=== PATIENT | female | born 1990 | race Caucasian/White ===

== ENCOUNTER 2023-05-16 08:15 | Outpatient (REF) | payer MEDICAID, SELFPAY ==
[2023-05-19 17:18] LABS: TS Negative Control Passed; TS Panel A 0; TS Panel B 0; TS Positive Control Passed; TSpotTB Negative (Negative)
== END 2023-05-16 08:16 | disposition home or self-care (01) ==
LOC: HO.CHCLDS 08:15
PROVIDERS: Visit Provider Family Medicine
DX: Z11.1 Encounter for screening for respiratory tuberculosis (principal)
CPT/HCPCS: 36415; 86481

== ENCOUNTER 2023-06-19 11:27 | Outpatient (REF) | payer MEDICAID, SELFPAY ==
[2023-06-19 14:18] LABS: MANUAL DIFF FLAG NO
[2023-06-19 14:24] LABS: Basophils Absolute Auto 0.1 X10*3/uL (0.0-0.2); Basophils Percent Auto 0.8 % (0-2); Eosinophils Absolute Auto 0.1 X10*3/uL (0.0-0.4); Eosinophils Percent Auto 1.1 % (0-4); Hematocrit 40.9 % (37.0-47.0); Hemoglobin 13.5 g/dl (12.0-16.0); Imm Gran Abs Auto 0.01 X10*3/uL (0.00-0.03); Imm Gran Pct Auto 0.2 % (0.0-0.4); Lymphocytes Absolute Auto 1.9 X10*3/uL (1.2-4.9); Lymphocytes Percent Auto 30.9 % (20-40); Mean Corpuscular Hemoglobin 28.6 pg (27.0-33.0); Mean Corpuscular Volume 86.7 fL (80.0-98.0); Mean Platelet Volume 11.2 fL (9.4-12.3); Monocytes Absolute Auto 0.4 X10*3/uL (0.1-1.2); Monocytes Percent Auto 5.9 % (2-11); Neutrophils Absolute Auto 3.8 x10*3/uL (2.0-8.3); Neutrophils Percent Auto 61.1 % (45-73); Platelet Count 293 X10*3/uL (160-400); Red Blood Count 4.72 X10*6/uL (4.20-5.50); Red Cell Distribution Width 12.8 % (11.0-16.0); White Blood Count 6.2 X10*3/uL (4.8-10.8)
[2023-06-19 14:53] LABS: Alanine Aminotransferase 11 U/L (0-31); Albumin Level 4.6 g/dL (3.5-5.0); Alkaline Phosphatase 67 U/L (39-117); Anion Gap 13 (12-20); Aspartate Amino Transferase 12 U/L (5-31); Bilirubin Total 0.4 mg/dL (0.0-1.0); Blood Urea Nitrogen 10 mg/dL (9-16); Calcium 9.7 mg/dL (8.4-10.2); Carbon Dioxide 29 mmol/L (22-29); Chloride 102 mmol/L (96-108); Cholesterol 196 mg/dL (<200); Estimated Glomerular Filt Rate > 60; Glucose Random 73 mg/dL (60-115); HDL Cholesterol 46 mg/dL (>40); LDL Cholesterol Calculated 129 mg/dL (<100); Potassium 3.9 mmol/L (3.3-5.1); Sodium 140 mmol/L (135-145); Total Protein 8.1 g/dL (6.5-8.0); Triglycerides 105 mg/dL (<150)
[2023-06-19 15:08] LABS: TSH reflex Free T4 1.06 uIU/mL (0.32-4.0)
[2023-06-19 15:17] LABS: Estimated Average Glucose 103 mg/dL; Hemoglobin A1c % 5.2 % (<6.0)
[2023-06-20 04:35] LABS: ~HepC Num1 0.21 S/CO (0.00-0.79); ~Hepatitis C Antibody Nonreactive (Nonreactive)
== END 2023-06-19 11:28 | disposition home or self-care (01) ==
LOC: HO.CHCLDS 11:27
PROVIDERS: Visit Provider Family Medicine
DX: Z13.29 Encounter for screening for other suspected endocrine disorder (principal); Z13.9 Encounter for screening, unspecified; E66.01 Morbid (severe) obesity due to excess calories; Z68.41 Body mass index [BMI] 40.0-44.9, adult
CPT/HCPCS: 36415; 80053; 80061; 83036; 84443; 85025; 86803

== ENCOUNTER 2023-07-04 11:36 | Outpatient (REF) | payer MEDICAID, SELFPAY ==
--- NOTE | ~2023-07-04 | CT_ITS ---
EXAMINATION: CT ABDOMEN AND PELVIS WITH CONTRAST CLINICAL INFORMATION: Chronic left lower quadrant pain. COMPARISON: None available. TECHNIQUE: Multidetector volumetric images were obtained from the superior aspect of the liver through the pubic symphysis following administration 85 mL of Omnipaque 350 intravenous contrast. Sagittal and coronal reformatted images were obtained on the technologist's workstation. Oral Contrast: No. This CT examination was performed using dose optimization techniques as appropriate, variously including the following: *Automated exposure control. *Adjustment of mA and/or kV according to patient size (this includes techniques or standardized protocols for targeted exams where dose is matched to indication/reason for exam; i.e. extremities or head). *Use of iterative reconstruction technique. DLP: 613 mGy-cm FINDINGS: LUNG BASES: The visualized lung bases are unremarkable. LIVER, GALLBLADDER, AND BILIARY TREE: The liver is normal in size, shape, and attenuation. No focal hepatic lesion or biliary ductal dilatation is present. The gallbladder is unremarkable with no evidence of radiopaque gallstones, gallbladder wall thickening, or obvious pericholecystic inflammatory changes. PANCREAS: Unremarkable. SPLEEN: Unremarkable. A small splenic cortical cyst is noted near the upper pole of the spleen. ADRENAL GLANDS: Unremarkable. KIDNEYS AND URETERS: The kidneys are normal in size, shape, and attenuation. No hydronephrosis, hydroureter, or calculi seen. No perinephric stranding. BLADDER: Unremarkable. GASTROINTESTINAL TRACT: The small and large bowel are unremarkable aside from colonic diverticula without diverticulitis. The appendix is unremarkable. ABDOMINAL WALL: No significant hernia is appreciated. LYMPH NODES: Normal. VASCULAR: Unremarkable. PELVIC VISCERA: Anteverted uterus. Probable 1.6 cm fundal fibroid on the left. Ovaries unremarkable. OSSEOUS STRUCTURES: Unremarkable. CT/CT abdomen pelvis w IV con IMPRESSION: 1. A cause for the patient's left lower quadrant pain has not been found. 2. Incidental note made of colonic diverticulosis without diverticulitis, small splenic cyst and probable small uterine fibroid. Fleischner guidelines were followed.
[2023-07-04] MEDS: iohexoL 350 MG/ML 100 ML INFUS..BTL IV (14:09)
[2023-07-04] MEDS: Barium Sulfate Oral (Berry) 450 ML ORAL.SUSP 900 ML PO (14:10)
== END 2023-07-04 11:37 | disposition home or self-care (01) ==
LOC: HO.CT 11:36
PROVIDERS: PCP Family Medicine; Visit Provider Family Medicine
DX: R10.32 Left lower quadrant pain (principal); G89.29 Other chronic pain
CPT/HCPCS: 74177; Q9967

== ENCOUNTER 2023-10-31 17:36 | Outpatient (REF) | payer MEDICAID, SELFPAY ==
[2023-10-31 19:02] LABS: Bacterial Vaginosis PCR NEGATIVE (Negative); Candida Group PCR NOT DETECTED (Not Detect); Candida glab krusei PCR NOT DETECTED (Not Detect); Trichomonas vaginalis PCR NOT DETECTED (Not Detect)
[2023-10-31 19:33] LABS: CT PCR NOT DETECTED (Not Detect.); NG PCR NOT DETECTED (Not Detect.)
== END 2023-10-31 17:37 | disposition home or self-care (01) ==
LOC: HO.HHCLNP 17:36
PROVIDERS: Visit Provider Family Medicine
DX: N93.9 Abnormal uterine and vaginal bleeding, unspecified (principal)
CPT/HCPCS: 0352U; 87491; 87591

== ENCOUNTER 2023-12-02 15:32 | Outpatient (REF) | payer MEDICAID, SELFPAY ==
[2023-12-03 04:24] LABS: Syphilis Screen Nonreactive (Nonreactive)
[2023-12-03 05:04] LABS: HIV AB/AG Nonreactive (Nonreactive); HIV Num 1 0.06 S/CO (0.00-0.99); ~HepC Num1 0.15 S/CO (0.00-0.79); ~Hepatitis C Antibody Nonreactive (Nonreactive)
== END 2023-12-02 15:33 | disposition home or self-care (01) ==
LOC: HO.CHCLDS 15:32
PROVIDERS: Visit Provider Family Medicine
DX: N93.9 Abnormal uterine and vaginal bleeding, unspecified (principal)
CPT/HCPCS: 36415; 86780; 86803; 87389

== ENCOUNTER 2024-08-07 16:28 | Emergency (ER) | payer MEDICAID, SELFPAY ==
--- NOTE | ~2024-08-07 | CT_ITS ---
CLINICAL HISTORY: RLQ pain, N V, UTI CT abdomen and pelvis with contrast Comparison: CT/VT/SR - CT ABDOMEN PELVIS W IV CON - 07/04/23 13:54 EDT Findings: No consolidation or effusion. Unremarkable gallbladder and solid organs. No urolithiasis. Symmetric contrast enhancement of the kidneys. No bowel obstruction, pneumoperitoneum, or pneumatosis. Pelvic contents unremarkable. Normal appendix. No acute fracture. IMPRESSION: No acute findings. This document has been electronically signed by: Errol Garcia MD on 08/07/2024 22:11:28
[2024-08-07 16:55] VITALS: BP 138/80; PULSE 77; RESP 16; TEMP 36.8; O2SAT 98; BMI 40.3
--- NOTE | 2024-08-07 16:55 | ED.GENADULT ---
HPI - General Adult General Chief complaint: Abdominal Pain Stated complaint: abd pain, bloating, nausea Time Seen by Provider: 08/07/24 19:55 Source: patient Mode of arrival: ambulatory Limitations: no limitations History of Present Illness ED Provider: PAULINA SINGER PA-C HPI narrative: 34 year-old female presenting to the ED with complaints of abdominal pain x1 week. Patient reports starting her menses that started with heavy bright red bleeding that lasted for 3 days and then transitioned to spotting for 3 days. She reports periumbilical and right lower quadrant abdominal discomfort. no radiation. She reports she is now feeling bloated, nauseous, and constipated x 2 days. Patient reports only being able to eat out off of her typical meals due to the loading and nausea but is able to tolerate PO. Patient reports last intercourse was yesterday with no pain. Patient has one partner and does not use protection. Patient reports associated subjective fever/chills. Denies headache, cough, shortness of breath, chest pain, urinary symptoms, abnormal vaginal discharge. No abdominal surgeries. Related Data Previous Rx's ?Medication ?Instructions ?Recorded nitrofurantoin 100 mg PO BID 7 days #14 caps 08/07/24 monohydrate/macrocrystals 100 mg capsule (Macrobid) metronidazole 500 mg tablet 500 mg PO BID 7 days #14 tabs 08/10/24 Allergies Allergy/AdvReac Type Severity Reaction Status Date / Time No Known Allergies Allergy Verified 08/07/24 16:58 Review of Systems Review of Systems: Yes all other systems are reviewed and are negative PMFSH Past Medical History Attestation statement: The following information was validated with the patient. Source: old records reviewed and nursing notes reviewed Social History Social History Substance Use Type: Marijuana Physical Exam ED Vital Signs: Vital Signs - 24 hr 08/07/24 16:55 08/07/24 19:17 08/07/24 22:18 Temperature 98.2 F 98.1 F 98.1 F Pulse Rate 77 68 60 Respiratory Rate 16 16 16 Blood Pressure 138/80 122/81 119/82 Pulse Oximetry 98 96 Oxygen Delivery Method Room Air Room Air Room Air Oxygen Flow Rate 99 BMI result Body Mass Index 40.3 vital signs stable, afebrile General: Well appearing, in no acute distress. Skin: Warm, dry, intact. No rashes or lesions. Head: Normocephalic, atraumatic. EENT: Hearing is intact b/l. Conjunctiva clear. Sclera is anicteric. PERRLA. EOM intact. Moist mucous membranes.? Cardiac: Chest wall symmetric. RRR Lungs: Normal respiratory effort without accessory muscle use. CTA bilaterally Abdomen: Soft, non-distended, TTP of RLQ without rebound or guarding. Positive BS x4. no cvat b/l. sensitive exam performed with [facility] Tech present in room to murali ramos student at bedside with patient's consent. External genitalia is normal in appearance without lesions, swelling, masses or tenderness. Vaginal canal is pink and moist without lesions. no blood, small amount of white/clear discharge within canal. Cervix is non-tender without lesions or erosions, nonfriable. Uterus isnon-tender and normal in size. Ovaries are non-tender without palpable masses or enlargement. No cervical motion tenderness on bimanual exam. Back: No midline spinous or paraspinal tenderness. No step off deformity. Ext: Upper and lower extremities atraumatic, without tenderness, deformity, swelling or erythema Neuro: AOx3. Normal speech. Ambulating with steady gait. Course Course Course Narrative: This is an RME performed by Jigar Christensen CNP: Additional HPI, ROS, PE not included below will be deferred to primary provider. Patient is a 34 old female who presents emergency department for evaluation. Reports 1 week ago had onset of menstrual cycle, had 3 days of bleeding followed by 3 days of spotting which is atypical for her cycle. Since has been experiencing diffuse abdominal pain, bloating, lower back pain, nausea, vomiting yesterday, tactile fever. Endorses urinary frequency as well as constipation. Took a home test which was negative. Plan: Serum labs, urinalysis, hCG Reevaluation(s) Reevaluation #1: 2303 -- CBC without leukocytosis or left shift. No anemia. H&H stable. Chemistry without acute electrolyte abnormality requiring intervention. No ZOË. Liver function WNL. Lipase WNL. Urine positive for infection. Negative for . Vaginal swabs for CT/NG, BV and trich pending. CT abdomen/pelvis unremarkable. No bowel obstruction. Pelvic contents unremarkable. No pelvic free fluid. Normal appendix. > patient well-appearing, in no acute distress. Exam is quite benign. Workup benign. Will treat for urinary tract infection with Macrobid. First dose provided in the ED. patient will be contacted with results from vaginal swabs. No presumptive treatment at this time. Patient has remained stable throughout ED visit today. Discussed worrisome signs and symptoms and when to return to the ED. All questions answered at this time. Patient is agreeable with disposition and stable for discharge. Reevaluation #2: Patient tested positive for bacterial vaginosis. I called and spoke to patient. We will send over metronidazole. No other questions or concerns. Medications Administered Discontinued Medications Generic Name Dose Route Start Last Admin Trade Name Herbert PRN Reason Stop Dose Admin Iohexol 85 ml 08/07/24 21:20 08/07/24 21:21 Iohexol 350 Mg/Ml 100 Ml Infus..Btl IV 08/07/24 21:21 85 ml ONCE ONE Administration Ketorolac Tromethamine 30 mg 08/07/24 20:32 08/07/24 21:26 Ketorolac Tromethamine 30 Mg/Ml Vial IVPUSH 08/07/24 20:33 30 mg ONCE ONE Administration Nitrofurantoin Macrocrystals 100 mg 08/07/24 23:00 08/07/24 23:14 Nitrofurantoin Monohyd/M-Cryst 100 Mg Capsule PO 08/07/24 23:01 100 mg ONCE ONE Administration Ondansetron HCl 4 mg 08/07/24 20:32 08/07/24 21:26 Ondansetron Hcl 4 Mg/2 Ml Vial IVPUSH 08/07/24 20:33 4 mg ONCE ONE Administration Medical Decision Making Medical Decision Making MDM Narrative: 34 year-old female presenting to the ED with complaints of abdominal pain x1 week. vital signs are stable. she is nontoxic appearing and in NAD. on abdominal exam, Soft, non-distended, TTP of RLQ without rebound or guarding. Positive BS x4. no cvat b/l. sensitive exam performed with [facility] Tech present in room to murali ramos student at bedside with patient's consent. External genitalia is normal in appearance without lesions, swelling, masses or tenderness. Vaginal canal is pink and moist without lesions. no blood, small amount of white/clear discharge within canal. Cervix is non-tender without lesions or erosions, nonfriable. Uterus isnon-tender and normal in size. Ovaries are non-tender without palpable masses or enlargement. No cervical motion tenderness on bimanual exam. Differential diagnosis consists of appendicitis, colitis, gastroenteritis, diverticulitis, ectopic , endometriosis, UTI, pyelonephritis, nephrolithiasis, constipation, ovarian cyst/torsion, bowel obstruction Plan for labs, UA, urine , CT abdomen pelvis with contrast, Toradol, Zofran, re-evaluation Differential Diagnosis Differential Diagnoses: The differential diagnosis associated with the presentation includes as above. Admission/Observation not indicated Lab Data MDM Lab Attestation statement: I reviewed the patient's lab results. as above. 08/07/24 18:02 08/07/24 18:02 Labs: Lab Results 08/07/24 08/07/24 08/07/24 Range/Units 18:02 18:51 23:01 WBC 8.2 (4.8-10.8) X10*3/uL RBC 4.38 (4.20-5.50) X10*6/uL Hgb 12.8 (12.0-16.0) g/dl Hct 37.9 (37.0-47.0) % MCV 86.5 (80.0-98.0) fL MCH 29.2 (27.0-33.0) pg MCHC 33.8 (31.0-35.0) g/dl RDW 13.2 (11.0-16.0) % Plt Count 280 (160-400) X10*3/uL MPV 10.6 (9.4-12.3) fL Immature Gran % (Auto) 0.4 (0.0-0.4) % Neut % (Auto) 62.5 (45-73) % Lymph % (Auto) 26.5 (20-40) % [place] % (Auto) 7.8 (2-11) % Eos % (Auto) 2.4 (0-4) % Baso % (Auto) 0.4 (0-2) % Lymph # (Auto) 2.2 (1.2-4.9) X10*3/uL [place] # (Auto) 0.6 (0.1-1.2) X10*3/uL Eos # (Auto) 0.2 (0.0-0.4) X10*3/uL Baso # (Auto) 0.0 (0.0-0.2) X10*3/uL Abs Immat Gran (auto) 0.03 (0.00-0.03) X10*3/uL Absolute Neuts (auto) 5.2 (2.0-8.3) x10*3/uL Absolute Nucleated RBC 0.000 (0.0-0.012) X10*3/uL Nucleated RBC % (auto) 0.0 (0.0-0.2) /100WBC Sodium 141 (135-145) mmol/L Potassium 3.8 (3.3-5.1) mmol/L Chloride 107 (96-108) mmol/L Carbon Dioxide 25 (22-29) mmol/L Anion Gap 13 (12-20) BUN 14 (9-16) mg/dL Creatinine 0.67 (0.5-1.4) mg/dL Estim Creat Clear Calc 125.9 Estimated GFR > 60 Random Glucose 90 (60-115) mg/dL Calcium 9.3 (8.4-10.2) mg/dL Total Bilirubin 0.2 (0.0-1.0) mg/dL AST 16 (5-31) U/L ALT 19 (0-31) U/L Alkaline Phosphatase 54 (39-117) U/L Total Protein 7.6 (6.5-8.0) g/dL Albumin 4.5 (3.5-5.0) g/dL Lipase 13 (8-78) U/L Urine Color Yellow Urine Appearance Cloudy Urine pH 6.0 (5.0-9.0) Ur Specific [place] >= 1.030 H (1.005-1.025) Urine Protein Trace (Neg-Trace) mg/dL Urine Glucose (UA) Negative (Negative) mg/dL Urine Ketones Trace (Negative) mg/dL Urine Blood Negative (Negative) Urine Nitrite Negative (Negative) Ur Leukocyte Esterase Moderate (2+) H (Negative) Urine RBC 0-2 (0-2) /HPF Urine WBC 11-20 H (0-5) /HPF Ur Squamous Epith Cells 0-2 (0-2) /HPF Urine Bacteria 3+ (None Seen) Hyaline Casts 0-2 (0-2) /LPF Urine Test NEGATIVE (NEGATIVE) Chlam trachomat DNA PCR NOT DETECTED (Not Detect.) N.gonorrhoeae DNA (PCR) NOT DETECTED (Not Detect.) T. vaginalis (PCR) NOT DETECTED (Not Detect) Bact vaginosis (PCR) POSITIVE A (Negative) C. krusei/glabrata (PCR) NOT DETECTED (Not Detect) Shira group (PCR) NOT DETECTED (Not Detect) Independent Interpretation I performed an independent interpretation of an: CT Scan Interpretation: ct a/p without bowel obstruction Radiology Impression Discussion of test interpretation with radiology: I have reviewed the radiologist's reading. Radiologist Impression: Procedure(s): CT abdomen pelvis w IV con Accession Number(s): [id number] cc: Paulina Singer; Kamille Zambrano MD~ Report Number: [id number]: Total DLP = 790.00 mGy-cm CLINICAL HISTORY: RLQ pain, N V, UTI CT abdomen and pelvis with contrast Comparison: CT/CT/SR - CT ABDOMEN PELVIS W IV CON - 07/04/23 13:54 EDT Findings: No consolidation or effusion. Unremarkable gallbladder and solid organs. No urolithiasis. Symmetric contrast enhancement of the kidneys. No bowel obstruction, pneumoperitoneum, or pneumatosis. Pelvic contents unremarkable. Normal appendix. No acute fracture. IMPRESSION: No acute findings. This document has been electronically signed by: Errol Garcia MD on 08/07/2024 22:11:28 Prescription Management I considered prescription management with: Pain Medication and Antibiotic Social Determinants Patient?s care significantly limited by Social Determinants of Health including: Other Social Determinant of Health Critical Care Time Critical Care Time Critical Care Time: No Discharge Plan Discharge Clinical Impression: Urinary tract infection Patient Disposition: Home, Self-Care Instructions: Urinary Tract Infection in Women (ED) Additional Instructions: Your blood work today is reassuring. The CT scan of your abdomen is normal. Your urine is positive for infection. Negative for . During your pelvic exam, we sent swabs to the lab to check for gonorrhea, chlamydia, Trichomonas and bacterial vaginosis. You will be contacted to find if these results are positive and will be treated appropriately at that time. I am sending nitrofurantoin to your pharmacy to treat your urinary tract infection. Take this twice daily for 7 days. You received your 1st dose in the ED today. Follow up with your primary care provider as needed. Return with any new or worsening symptoms. In the case of an emergency call 911. Prescriptions: New nitrofurantoin monohyd/m-cryst [Macrobid] 100 mg capsule 100 mg PO BID 7 Days Qty: 14 0RF Rx Instructions: must administer with a meal/food metronidazole 500 mg tablet 500 mg PO BID 7 Days Qty: 14 0RF Referrals: Kamille Zambrano MD [Primary Care Provider] - Interventions: ED Discharge Assessment Last Done: 08/07/24 23:06 Discharge Date/Time: 08/07/24 23:16 Print Language: [place]an
[2024-08-07 18:05] LABS: MANUAL DIFF FLAG NO
[2024-08-07 18:07] LABS: Basophils Percent Auto 0.4 % (0-2); Eosinophils Absolute Auto 0.2 X10*3/uL (0.0-0.4); Eosinophils Percent Auto 2.4 % (0-4); Hematocrit 37.9 % (37.0-47.0); Hemoglobin 12.8 g/dl (12.0-16.0); Imm Gran Abs Auto 0.03 X10*3/uL (0.00-0.03); Imm Gran Pct Auto 0.4 % (0.0-0.4); Lymphocytes Absolute Auto 2.2 X10*3/uL (1.2-4.9); Lymphocytes Percent Auto 26.5 % (20-40); Mean Corpuscular HGB Conc 33.8 g/dl (31.0-35.0); Mean Corpuscular Hemoglobin 29.2 pg (27.0-33.0); Mean Corpuscular Volume 86.5 fL (80.0-98.0); Mean Platelet Volume 10.6 fL (9.4-12.3); Monocytes Absolute Auto 0.6 X10*3/uL (0.1-1.2); Monocytes Percent Auto 7.8 % (2-11); Neutrophils Absolute Auto 5.2 x10*3/uL (2.0-8.3); Neutrophils Percent Auto 62.5 % (45-73); Platelet Count 280 X10*3/uL (160-400); Red Blood Count 4.38 X10*6/uL (4.20-5.50); Red Cell Distribution Width 13.2 % (11.0-16.0); White Blood Count 8.2 X10*3/uL (4.8-10.8)
[2024-08-07 18:20] LABS: Alanine Aminotransferase 19 U/L (0-31); Albumin Level 4.5 g/dL (3.5-5.0); Alkaline Phosphatase 54 U/L (39-117); Anion Gap 13 (12-20); Aspartate Amino Transferase 16 U/L (5-31); Bilirubin Total 0.2 mg/dL (0.0-1.0); Blood Urea Nitrogen 14 mg/dL (9-16); Calcium 9.3 mg/dL (8.4-10.2); Carbon Dioxide 25 mmol/L (22-29); Chloride 107 mmol/L (96-108); Creatinine Clr Calc Pharmacy 125.9; Estimated Glomerular Filt Rate > 60; Glucose Random 90 mg/dL (60-115); Lipase 13 U/L (8-78); Potassium 3.8 mmol/L (3.3-5.1); Sodium 141 mmol/L (135-145); Total Protein 7.6 g/dL (6.5-8.0)
[2024-08-07 18:59] LABS: Appearance Urine Cloudy; Color Urine Yellow; Glucose Urine UA Negative (Negative); Leukocyte Esterase Urine Moderate (2+) (Negative); Nitrite Urine Negative (Negative); Specific Gravity - Urine >= 1.030 (1.005-1.025); UMIC TRIGGER UACC YES; Urine Blood Negative (Negative); Urine Ketones Trace mg/dL (Negative); Urine Protein Trace mg/dL (Neg-Trace)
[2024-08-07 19:01] LABS: Bacteria Urine 3+ (None Seen); Hyaline Casts Urine 0-2 /LPF (0-2); RBC Urine 0-2 /HPF (0-2); Squamous Epithelial Cell Urine 0-2 /HPF (0-2); UACC Culture Trigger YES; UPreg QC Valid YES; Urine Pregnancy NEGATIVE (NEGATIVE)
[2024-08-07 19:17] VITALS: BP 122/81; PULSE 68; RESP 16; TEMP 36.7
--- NOTE | 2024-08-07 19:57 | PC.NURSE ---
Pt resting comfortably on stretcher. Denies any current pain or nausea. VSS
[2024-08-07] MEDS: iohexoL 350 MG/ML 100 ML INFUS..BTL 85 ML IV (21:21)
[2024-08-07] MEDS: Ketorolac Tromethamine 30 MG/ML VIAL IVPUSH (21:26)
[2024-08-07] MEDS: ondansetron HCL 4 MG/2 ML VIAL IVPUSH (21:26)
[2024-08-07 22:18] VITALS: BP 119/82; PULSE 60; RESP 16; TEMP 36.7; O2SAT 96
[2024-08-07 23:06] VITALS: BP 130/76; PULSE 62; RESP 18; TEMP 36.8; O2SAT 97
[2024-08-07] MEDS: Nitrofurantoin Monohyd/M-Cryst 100 MG CAPSULE PO (23:14)
[2024-08-08 12:02] LABS: Bacterial Vaginosis PCR POSITIVE (Negative); Candida Group PCR NOT DETECTED (Not Detect); Candida glab krusei PCR NOT DETECTED (Not Detect); Trichomonas vaginalis PCR NOT DETECTED (Not Detect)
[2024-08-08 12:34] LABS: CT PCR NOT DETECTED (Not Detect.); NG PCR NOT DETECTED (Not Detect.)
== END 2024-08-07 23:16 | disposition home or self-care (01) ==
PROVIDERS: Nurse Practitioner Family; Physician Assistant Medical; Emergency Provider Emergency Medicine; PCP Family Medicine
DX: N39.0 Urinary tract infection, site not specified (principal); R10.31 Right lower quadrant pain
CPT/HCPCS: 36415; 74177; 80053; 81001; 81025; 81515; 83690; 85025; 87086; 87491; 87591; 96374; 96375; 99284; J1885; J2405; Q9967

== ENCOUNTER → 2024-08-07 20:32 | Outpatient (BNV) | payer MEDICAID, SELFPAY | PROVIDERS: Emergency Provider Emergency Medicine; PCP Family Medicine; Visit Provider Radiology Diagnostic Radiology | DX: N39.0 Urinary tract infection, site not specified (principal); R10.31 Right lower quadrant pain; R11.2 Nausea with vomiting, unspecified | CPT/HCPCS: 74177 ==

== ENCOUNTER 2025-03-26 10:27 | Outpatient (REF) | payer MEDICAID, SELFPAY ==
--- OUTSIDE RECORDS SUMMARY | 2025-03-26 09:15 | XMS_ITS | Encounter Summary ---
Author Organization [employer] Address [address] [place] [address] [address] [place] [address] Care Team Providers Care Temperature Inspector Name Role Phone Kamille Zambrano MD Primary Care Provider [phone] Reason for Referral * Consultation (Routine) - Pending Review Specialty Diagnoses / Procedures Referred By Teresita redman Referred To Contact Sleep Medicine Diagnoses Sleep apnea, unspecified type Kaimlle Zambrano MD [address] [place] [address] Phone: tel: fax: Referral ID Status Reason Start Date Expiration Date Visits Requested Visits Authorized [id number] Pending Review Specialty Services Required 03/26/2026 1 1 Encounter Details Date Type Department Care Team (Late st Contact Info) Description 03/26/2025 9:15 AM EST Office Visit [facility] [address] [place] [address] Kamille Zambrano MD [address] [place] [address] Encounter for immunization (Primary Dx); Screening examination for STD (sexually transmitted disease); Class 3 severe obesity due to excess calories without serious comorbidity with body mass index (BMI) of 40.0 to 44.9 in adult (HCC); Suspected Sleep Apnea Social History Tobacco Use Types Packs/Day Years Used Date Smoking Tobacco: Never Passive Smoke Exposure: Never Smokeless Tobacco: Never Alcohol Use Standard Drinks/Week Comments Never 0 (1 standard drink = 0.6 oz pur e alcohol) Depression Answer Date Recorded Patient Health Questionnaire-9 Score 3 03/26/2025 Patient Health Questionnaire-9 Score 3 03/26/2025 Last PHQ-9: Questionnaire Data Not on file 1 05/27/2024 Housing Stability Answer Date Recorded What is your housing situation today? I have hosea vargas 03/19/[address] you li ve. Do you have problems with any of the following? None of the above 03/19/2025 Food Insecurity Answer Date Recorded Within the past 12 months, y ou worried that your food would run out before you got money to buy more: Never True 03/19/2025 Within the past 12 months,th e food you bought just didn't last and you didn't have enough money to get more: Never True 03/2025 Transportation Answer Date Recorded In the past 12 months, has l ack of transportation kept you from medical appts, meetings, work or from getting things needed for daily living? No 03/19/2025 Utilities Answer Date Recorded In the past 12 months, has t he electric, gas, oil or water company threatened to shut off services in your home? No 03/19/2025 Depression Answer Date Recorded Patient Health Questionnaire-2 Score 1 03/26/2025 Internet Access Answer Date Recorded Internet Access Q1 Yes 03/19/2025 Internet Access Q2 Not on file 03/19/2025 Comments No Sex and Gender Information Value Date Recorded Sex Assigned at Female 02/05/2022 10:15 AM EDT Legal Sex Female 10:15 AM EDT Gender Identity Female 02/05/2022 10:15 AM EDT Sexual Orientation Straight 02/05/2022 10 :15 AM EDT documented as of this encounter Last Filed Vital Signs Vital Sign Reading Time Taken Comments Blood Pressure 123/84 03/26/2025 9:03 AM EST Pulse 76 03/26/2025 9:03 AM EST Temperature 36.3 C (97.4 F) 03/26/2025 9:03 AM EST Respiratory Rate 20 03/26/2025 9:03 AM EST Oxygen Saturation 98% 03/26/2025 9:03 AM EST Inhaled Oxygen Concentration - - Weight 91 kg (200 lb 9.6 oz) 03/26/2025 9:03 AM EST Height 154.9 cm (5' 1 ) 03/26/2025 9:03 AM EST Body Mass Index 37.9 03/26/2025 9:03 AM EST documented in this encounter Functional Status * Over the past 2 weeks, how often have you been bothered by any of the following problems? Question Answer Date of Assessment Author Patient Health Questionnaire -2 Score 1 03/26/2025 9:21 AM Kamille Murray MD * Little interest or pleasure in doing things Answer Date of Assessment Author Several days 03/26/2025 9:21 AM Silverio Murray MD * Feeling down, depressed, or hopeless Answer Date of Assessment Author Not at all 03/26/2025 9:21 AM Silverio Murray MD * Trouble falling or staying asleep, or sleeping too much Answer Date of Assessment Author Not at all 03/26/2025 9:21 AM Silverio Murray MD * Feeling tired or having little energy Answer Date of Assessment Author Several days 03/26/2025 9:21 AM Silverio Murray MD * Poor appetite or overeating Answer Date of Assessment Author Not at all 03/26/2025 9:21 AM Silverio Murray MD * Feeling bad about yourself - or that you are a failure or have let yourself or your family down Answer Date of Assessment Author Not at all 03/26/2025 9:21 AM Silverio Murray MD * Trouble concentrating on things, such as reading the newspaper or watching television Answer Date of Assessment Author Several days 03/26/2025 9:21 AM Silverio Murray MD * Moving or speaking so slowly that other people could have noticed? Or the opposite - being so fidgety or restless that you have been moving around a lot more than usual. Answer Date of Assessment Author Not at all 03/26/2025 9:21 AM Silverio Murray MD * Thoughts that you would be better off or hurting yourself in some way Answer Date of Assessment Author Not at all 03/26/2025 9:21 AM Silverio Murray MD * Patient Health Questionnaire-9 Score Answer Date of Assessment Author 3 03/26/2025 9:21 AM EST Silverio Zambrano MD documented as of this encounter Plan of Treatment Upcoming Encounters Date Type Department Care Team (Late st Contact Info) Description 04/30/2025 10:00 AM EST Office Visit [facility] [address] [place] [address] Karis Pires, OD [address] [place] [address] Scheduled Orders Name Type Priority Associated Diagnoses Orde r Schedule HIV-1/2 Antigen and Antibodies, Fourth Generation, with Reflexes Lab Routine Screening examination for STD (sexually transmitted disease) Expected: 03/26/2025 (Approximate), Expires: 03/26/2026 Chlamydia/N. Gonorrhoeae RNA, TMA, Urogenitial Microbiology Routine Screening examination for STD (sexually transmitted disease) Ordered: 03/26/2025 Syphilis Screen Lab Routine Screening examination for STD (sexually transmitted disease) Expected: 03/26/2025, Expires: 03/26/2026 Bacterial Vaginosis Panel Microbiology Routine Screening examination for STD (sexually transmitted disease) Ordered: 03/26/2025 Hepatitis C Antibody with Reflex to HCV, RNA, Quantitative, Real-Time PCR Lab Routine Screening examination for STD (sexually transmitted disease) Expected: 03/26/2025, Expires: 03/26/2026 CBC auto differential Lab Routine Class 3 severe obesity due to excess calories without serious comorbidity with body mass index (BMI) of 40.0 to 44.9 in adult (HCC) Expected: 03/26/2025 (Approximate), Expires: 03/26/2026 Comprehensive Metabolic Panel Lab Routine Class 3 severe obesity due to excess calories without serious comorbidity with body mass index (BMI) of 40.0 to 44.9 in adult (HCC) Expected: 03/26/2025 (Approximate), Expires: 03/26/2026 TSH W/Reflex to FT4 Lab Routine Class 3 severe obesity due to excess calories without serious comorbidity with body mass index (BMI) of 40.0 to 44.9 in adult (HCC) Expected: 03/26/2025 (Approximate), Expires: 03/26/2026 Vitamin D, 25-Hydroxy, Total, Immunoassay Lab Routine Class 3 severe obesity due to excess calories without serious comorbidity with body mass index (BMI) of 40.0 to 44.9 in adult ([facility]) Expected: 03/26/2025 (Approximate), Expires: 03/26/2026 Lipid Panel, Standard Lab Routine Class 3 severe obesity due to excess calories without serious comorbidity with body mass index (BMI) of 40.0 to 44.9 in adult ([facility]) Expected: 03/26/2025 (Approximate), Expires: 03/26/2026 Scheduled Referrals Name Type Priority Associated Diagnoses Orde r Schedule Referral to Sleep Medicine Outpatient Referral Routine Suspected Sleep Apnea Expected: 03/26/2025 (Approximate), Expires: 03/26/2026 documented as of this encounter Visit Diagnoses Diagnosis Encounter for immunization- Primary Screening examination for STD (sexually transmitted disease) Class 3 severe obesity due to excess calories without serious comorbidity with body mass index (BMI) of 40.0 to 44.9 in adult ([facility]) Suspected Sleep Apnea documented in this encounter Additional Health Concerns Assessment Noted Time PHQ-9 Depression Total Score: 3 03/26/20 25 9:21 AM EST documented as of this encounter Care Teams Temperature Inspector Relationship Specialty Start Date End Date Kamille Zambrano MD [address] [place] [address] PCP - General Family Medicine 03/07/21 Eligio Reyes Nurse Practitioner Psychiatry 04/08/22 documented as of this encounter
--- OUTSIDE RECORDS SUMMARY | 2025-03-26 12:06 | XMS_ITS | Encounter Summary ---
Author Organization [employer] Address [address] [place] [address] Care Team Providers Care Personnel Coordinator Name Role Phone Kamille Zambrano MD Primary Care Provider [phone] Encounter Details Date Type Department Care Team (Latest Contact Info) Description 03/26/2025 Travel Social History Tobacco Use Types Packs/Day Years [...] AM EDT documented as of this encounter Plan of Treatment Upcoming Encounters Date Type Department Care Team (Late st Contact Info) Description 04/30/2025 10:00 AM EST Office Visit [facility] [address] [place] [address] Karis Pires, OD [address] [place] [address] documented as of this encounter Visit Diagnoses Not on filedocumented in this encounter Additional Health Concerns Assessment Noted Time PHQ-9 Depression Total Score: 3 03/26/20 25 9:21 AM EST documented as of this encounter Care Teams Personnel Coordinator Relationship Specialty Start Date End Date Kamille Zambrano MD [address] [place] [address] PCP - General Family Medicine 03/07/21 Eligio Reyes Nurse Practitioner Psychiatry 04/08/22 documented as of this encounter
--- OUTSIDE RECORDS SUMMARY | 2025-03-26 12:06 | XMS_ITS | Encounter Summary ---
Author Organization [employer] Address [address] [place] [address] Care Team Providers Care Box Stapler Name Role Phone Kamille Zambrano MD Primary Care Provider [phone] Reason for Visit * Reason Comments Med Refill Encounter Details Date Type Department Care Team ([facility] Contact Info) Description 10/24/2023 Refill [facility] [address] [place], [place] [phone] Kamille Zambrano MD [address] [place] [address] Social History Tobacco Use Types Packs/Day Years Used Date Smoking Tobacco: Never Passive Smoke Exposure: Never Smokeless Tobacco: Never Alcohol Use Standard Drinks/Week Comments Never 0 (1 standard drink = 0.6 oz pur e alcohol) Depression Answer Date Recorded Patient Health Questionnaire-9 Score 3 06/19/2023 Patient Health Questionnaire-9 Score 3 06/19/2023 Last PHQ-9: Questionnaire Data Not on file 0 06/19/2023 Housing Stability Answer Date Recorded What is your housing situation today? I have hosea vargas 06/11/[address] you li ve. Do you have problems with any of the following? None of the above 06/11/2023 Food Insecurity Answer Date Recorded Within the past 12 months, y ou worried that your food would run out before you got money to buy more: Never True 06/11/2023 Within the past 12 months,th e food you bought just didn't last and you didn't have enough money to get more: Never True 08/2023 Transportation Answer Date Recorded In the past 12 months, has l ack of transportation kept you from medical appts, meetings, work or from getting things needed for daily living? No 06/11/2023 Utilities Answer Date Recorded In the past 12 months, has t he electric, gas, oil or water company threatened to shut off services in your home? No 06/11/2023 Depression Answer Date Recorded Patient Health Questionnaire-2 Score 2 06/19/2023 Comments Unknown Sex and Gender Information Value Date Recorded Sex Assigned at Female 02/05/2022 10:15 AM EDT Legal Sex Female 10:15 AM EDT Gender Identity Female 02/05/2022 10:15 AM EDT Sexual Orientation Straight 02/05/2022 10 :15 AM EDT documented as of this encounter Miscellaneous Notes * Telephone Encounter - Celeste Moore MD - 10/24/2023 4:32 PM EDT Spoke with Fabiola ( `s [place]) who will schedule patient with for follow up weight visit . documented in this encounter Plan of Treatment Upcoming Encounters Date Type Department Care Team (Late st Contact Info) Description 04/30/2025 10:00 AM EST Office Visit [facility] [address] [place] [address] Tarka, Karis, OD [address] [place] [address] documented as of this encounter Visit Diagnoses Not on filedocumented in this encounter Additional Health Concerns Assessment Noted Time PHQ-9 Depression Total Score: 3 06/19/19 24 10:28 AM EDT documented as of this encounter Care Teams Box Stapler Relationship Specialty Start Date End Date Kamille Zambrano MD [address] [place] [address] PCP - General Family Medicine 03/07/21 Eligio Medinao Nurse Practitioner Psychiatry 04/08/22 documented as of this encounter
--- OUTSIDE RECORDS SUMMARY | 2025-03-26 12:06 | XMS_ITS | Clinical Summary ---
Author Organization [employer] Address [address] [place] [address] Care Team Providers Care Carrier Operator Name Role Phone Kamille Zambrano MD Primary Care Provider [phone] Allergies No known active allergies Medications mirtazapine (Remeron) 30 MG tablet TAKE 1/2 TABLET TO 1 TABLET BY MOUTH NIGHTLY NEEDED FOR SLEEP 5 Active ketoconazole (Nizoral) 2 % shampooIndicati ons:Seborrheic dermatitis of scalp Apply topically 2 (two) times a week. 120 mL 1 3 03/26/20 25 Discontinu ed(Therapy completed) sertraline (Zoloft) 50 MG tablet TAKE 1 TABLET BY MOUTH DAILY FOR ANXIETY/DEPRE SSION 4 03/26/20 25 Discontinu ed(Therapy completed) cloNIDine (Catapres) 0.3 MG tablet TAKE 1 TABLET NIGHTLY NEEDED FOR ANXIETY/SLEEP . HOLD DOSAGE FOR SBP=OR<100 DBP=OR<50 HR=OR<50 4 03/26/20 25 Discontinu ed(Therapy completed) polyethylene glycol, PEG, 3350 (MiraLax) 17 GM/SCOOP powder Take 17 g by mouth in the morning. 527 g 5 4 03/26/20 25 Discontinu ed(Therapy completed) senna-docusate sodium (Senokot-S) 8.6-50 MG tablet Take 2 tablets by mouth in the morning. 60 tablet 2 4 03/26/20 25 Discontinu ed(Therapy completed) Semaglutide-Chris ght Management (Wegovy) 2.4 MG/0.75ML solution auto-injector Inject 2.4 mg under the skin 1 (one) time per week. 3 mL 3 4 03/26/20 Discontinu ed(Therapy completed) Sod Fluoride-Potass ium Nitrate 1.1-5 % pasteIndication s:Dental caries [place] teeth for 2 minutes, morning and night. Spit, do not rinse. Do not eat or drink anything for 30 minutes following brushing. 112 g 3 4 03/26/20 Discontinu ed(Therapy completed) Active Problems Problem Noted Date Diagnosed Date Screening examination for ST D (sexually transmitted disease) 03/26/2025 Vagina bleeding 10/31/2023 Assessment & Plan (10/31/2023 4:15 PM EDT): Recommended vaginal moisturizers and lubrication. Desensitization with vaginal dilators, will testing for STDs. Cervical cancer screening 06/11/2022 Assessment & Plan (06/11/2022 2:34 PM EST): Previous pap NILM, TZ+ w/ HRHPV, if normal co-testing needs repeat in 1 yr with cotesting, if HPV Positive needs referral to obgyn nurse for colposcopy. Class 3 severe obesity due t o excess calories without serious comorbidity with body mass index (BMI) of 40.0 to 44.9 in adult 05/14/2022 Assessment & Plan (06/19/2023 10:48 PM EDT): Discussed calorie deficit, recommended reduction of 20-30% of maintenance calories; guest experience captain referral offered. Recommended to decrease soda and sugary beverage consumption. Recommended at least 20 g per meal of protein to assist with satiety. Recommended at least 150 min/week of moderate intensity exercise. The patient expressed interest in weight loss medications. Plan to start Wegovy medication as it becomes available. Counseled patient on the benefits of Wegovy and side effects. Labs: CBC, Comprehensive Metabolic Panel, TSH, Hemoglobin A1c, Lipid Panel, Hep C antibody Assessment & Plan (05/14/2022 5:08 PM EST): Discussed calorie deficit, recommended reduction of 20-30% of maintenance calories; guest experience captain referral offered. Recommended to decrease soda and sugary beverage consumption. Recommended at least 20 g per meal of protein to assist with satiety. Recommended at least 150 min/week of moderate intensity exercise. Consider discussing adding naltrexone to her wellbutrin to assist with wt loss. Pre-employment health screening examination 09/2022 Assessment & Plan (05/14/2022 5:08 PM EST): BMI 43.58 kg/m, discussed diet modification, declined nutrition referral. PHQ-9: 3 Declined BC Need repeat pap next month, last on NILM, HRHPV on 06/2021 Seborrheic dermatitis of scalp 05/14/2022 Assessment & Plan (05/14/2022 5:08 PM EST): Will send ketoconazole Adjustment disorder with depressed mood 06/17/19 19 Overview (05/14/2022): Overview Note: Adjustment disorder with depre #[id number]# EXT_ID: [id number] Anxiety state 06/16/2018 Overview (05/14/2022): Overview Note: Anxiety #[id number]# EXT_ID: [id number] Restless leg syndrome 01/09/2018 Overview (05/14/2022): Overview Note: Restless leg syndrome #[id number]# EXT_ID: [id number] Other signs and symptoms involving cognition Overview (05/14/2022): Overview Note: Unspecified Neurocognitive Dis #[id number]# EXT_ID: [id number] Other depressive disorder 07/31/2017 Overview (05/14/2022): Overview Note: Unspecified Depressive Disorde #[id number]# EXT_ID: [id number] Encounters Date Type Department Care Team Description 03/26/2025 9:15 AM EST Office Visit [facility] [address] [place] [address] Kamille Zambrano MD Encounter for immunization (Primary Dx); Screening examination for STD (sexually transmitted disease); Class 3 severe obesity due to excess calories without serious comorbidity with body mass index (BMI) of 40.0 to 44.9 in adult (HCC); Suspected Sleep Apnea 03/26/2025 Travel 03/19/2025 Patient Outreach [facility] [address] [place] [address] Kamille Zambrano MD Pre-visit Planning (SDOH negative. Tobacco screening negative. ) from Last 3 Months Immunizations Immunization Administration Dates Next Due Hep B, adult 06/19/2023 HepB-CpG 03/26/2025,10/05/2023 Influenza injectable quadriv alent IIV4 with preservative 02/17/2020,01/04/2015 Influenza injectable quadriv alent preservative free 12/19/2022,03/07/2021,12/26/2018,2015 Influenza, IIV3, injectable 12/24/2013 Influenza, Split (incl. dave fied surface antigen) 05/02/2012 Influenza, seasonal, injecta ble, preservative free 03/26/2025,01/09/2018 Pfizer Covid-19 Vaccine 12+ 03/26/2025, Pfizer Covid-19 Vaccine 12+ Bivalent 04/17/2022 Tdap 10/05/2023,12/24/2013 Social History Tobacco Use Types Packs/Day Years Used Date Smoking Tobacco: Never Passive Smoke Exposure: Never Smokeless Tobacco: Never Tobacco Cessation:Counseling Given: Not Answered Alcohol Use Standard Drinks/Week Comments Never 0 [...] Orientation Straight 02/05/2022 10 :15 AM EDT Last Filed Vital Signs Vital Sign Reading [...] Mass Index 37.9 03/26/2025 9:03 AM EST Plan of Treatment Upcoming Encounters Date Type Department Care Team (Late st Contact Info) Description 04/30/2025 10:00 AM EST Office Visit [facility] [place], [place] [id number] Karis Pires, OD [address] [place] [address] Health Maintenance Due Date Last Done Comments Disability Screening 1990 Alcohol/Substance Use Screening 2002 Family Planning (PISQ) 2005 HPV Vaccines (1 - 3-dose series) 2005 Dental X-Ray: Bitewings 01/15/2025 01/15/2024 Dental Oral Exam 02/03/2025 08/03/2024, 01/15/2024 Dental Prophylaxis 02/03/2025 08/03/2024, 01/15/2024 Pap Smear 06/11/2025 06/11/2022, 06/07/2021 SDOH Screening 03/19/2026 03/19/2025 Depression Screening 03/26/2026 03/26/2025, 03/26/20 25 Tobacco Screening 03/26/2026 03/26/2025 Dental X-Ray: Full Mouth 01/15/2027 01/15/2024 Cervical Cancer Screening 06/12/2027 HPV/Cotest 06/12/2027 06/11/2022, 06/07/2021 Lipid Panel 06/18/2028 06/19/2023, 09/2022, 04/06/2021 DTaP/Tdap/Td Vaccines (3 - Td or Tdap) 10/04/2033 10/05/2023, 12/24/2013 Zoster Vaccines (1 of 2) 2040 RSV Patients and Patients Aged 60 years or older (1 - 1-dose 75+ series) 2065 HIV Screening Completed 12/02/2023, 03/0 05/2021, 01/15/2018 Hepatitis C Screening Completed 12/02/2023, 024 COVID-19 Vaccine Completed 03/26/2025, 05/2022, 04/17/2022, Additional history exists Hepatitis B Vaccines Completed 03/26/2025, 10/05/2023, 06/19/2023 Influenza Vaccine Completed 03/26/2025, , 03/07/2021, Additional history exists HIB Vaccines Aged Out No longer eligi ble based on patient's age to complete this topic Hepatitis A Vaccines Aged Out No long er eligible based on patient's age to complete this topic IPV Vaccines Aged Out No longer eligi ble based on patient's age to complete this topic Meningococcal B Vaccine Aged Out No l onger eligible based on patient's age to complete this topic Meningococcal Vaccine Aged Out No nadeem belkis eligible based on patient's age to complete this topic Pneumococcal Vaccine: Pediatrics (0 to 5 Years) and At-Risk Patients (6 to 49) Years Aged Out No longer eligible based on patient's age to complete this topic RSV under 20 months Aged Out No longe r eligible based on patient's age to complete this topic Rotavirus Vaccines Aged Out No longer eligible based on patient's age to complete this topic Procedures Procedure Name Priority Date/Time Associated Diagnosis Comments PROPHYLAXIS - ADULT Routine 08/03/2024 1 0:00 AM EDT PERIODIC ORAL EVALUATION - ESTABLISHED PATIENT Routine 08/03/2024 10:00 AM EDT INTRAORAL - COMPLETE SERIES OF RADIOGRAPHIC IMAGES Routine 01/15/2024 1:00 PM EDT Dental caries HEPATITIS C AB W/REFL TO HCV RNA, QN, PCR Routine 12/02/2023 3:36 PM EDT Vagina bleeding HIV 1/2 ANTIGEN/ANTIBODY, FOURTH GENERATION W/RFL Routine 12/02/2023 3:36 PM EDT Vagina bleeding LIPID PANEL, STANDARD Routine 06/19/2023 11:29 AM EDT Class 3 severe obesity due to excess calories without serious comorbidity with body mass index (BMI) of 40.0 to 44.9 in adult (CMS/HCC) THINPREP IMAGING PAP AND HPV MRNA E6/E7 WITH REFLEX TO HPV 16,18/45 Routine 06/11/2022 10:30 AM EST from Last 3 Months or Most Recently Relevant to Health Maintenance Results * Hepatitis C Antibody with Reflex to HCV, RNA, Quantitative, Real-Time PCR (12/02/2023 3:36 PM EDT) Hepatitis C Antibody Nonreactive Nonreactive [facility] Comment:Antibodies to HCV no t detected; does not exclude early acuteHCV infection. Blood Venous blood specimen / Unknown 12/02/2023 3:36 PM EDT 12/02/2023 5:28 PM EDT Kamille Zambrano MD LAB BLOOD ORDERABLES Final Re sult Performing Organization Address [facility]/ZIP Co de Phone Number [facility] [address] [place] [address] [phone] * HIV-1/2 Antigen and Antibodies, Fourth Generation, with Reflexes (12/02/2023 3:36 PM EDT) HIV AB/AG Nonreactive Nonreactive [facility] Comment:HIV-1 p24 Ag and/or HIV-1/HIV-2 Ab not detected.A test result that is nonreactive does not exclude thepossibility of exposure to or infection with HIV-1 and/orHIV-2. Nonreactive results in this assay for individualswith prior exposure to HIV-1 and/or HIV-2 may be due toantigen and antibody levels that are below the limit ofdetection of this assay.[facility] HIV Ag/Ab Combo assay result andsupplemental assay results should be interpreted inconjunction with the patient's clinical presentation,history and other laboratory results. If the results areinconsistent with clinical evidence, additional testing issuggested to confirm the result. Blood Venous blood specimen / Unknown 12/02/2023 3:36 PM EDT 12/02/2023 5:28 PM EDT us Kamille Zambrano MD LAB BLOOD ORDERABLES Final Re sult Performing Organization Address [facility]/ZIP Co de Phone Number [facility] [address] [place] [address] [phone] * (ABNORMAL) Lipid Panel, Standard (06/19/2023 11:29 AM EDT) Triglycerides 105 <150 mg/dL [facility] Comment:Desirable Triglyceri de: less than 150 mg/dLBorderline High Triglyceride 150-199 mg/dLHigh Triglyceride: 200-499 mg/dLVery High Triglyceride: greater than or equal to 5OO mg/dL Cholesterol 196 <200 mg/dL [facility] Comment:Desirable Cholestero l: less than 200 mg/dLBorderline High Cholesterol: 200-239 mg/dLHigh Cholesterol: greater than 239 mg/dL LDL Cholesterol Calculated 129(H) <100 mg/dL [facility] Comment:Desirable LDL: less than 100 mg/dLNear Optimal/Above Optimal LDL: 110- 129 mg/dLBorderline High LDL: 130-159 mg/dLHigh LDL: 160-189 mg/dLVery High LDL: greater than or equal to 190 mg/dL HDL Cholesterol 46 >40 mg/dL [facility] Comment:Desirable HDL: great er than 40 mg/dL Note: This HDL assay may give artificially low results in patients with liver disease. Blood Venous blood specimen / Unknown 06/19/2023 11:29 AM EDT 06/19/2023 2:10 PM EDT us Kamille Zambrano MD LAB BLOOD ORDERABLES Final Re sult [facility] [address] [place] [phone] * Thinprep TIS PAP And HPV mRNA E6/E7 With Reflex To HPV 16,18/45 (06/11/2022 10:30 AM EST) Clinical Information: PRIOR PAP NILM &HRHPV? [facility] LMP: 05/23/22 [facility] [employer] [facility] Prev. PAP: NONE GIVEN [facility] Prev. BX: NONE GIVEN [facility] [employer] SOURCE: None given [facility] Statement Of Adequacy: [facility] Comment: Satisfactory for evaluation. Endocervical/transformation zone component present. Interpretation/ Result: Negative for intraepithelial lesion or malignancy. [facility] [facility] Comment: [facility] [facility] Comment: This case could not be evaluated with computer assisted technology. The slide was manually screened according to routine procedures. Cytotechnologis t: [facility] Comment: RMM, CT(ASCP) CT screening location: [address] [address] Review [employer]otechnologis t: [facility] Comment: GSG, CT(ASCP) CT screening location: [place] [address] (Always Message) [facility] Comment: EXPLANATORY NOTE: The Pap is a screening test for cervical cancer. It is not a diagnostic test and is subject to false negative and false positive results. It is most reliable when a satisfactory sample, regularly obtained, is submitted with relevant clinical findings and history, and when the Pap result is evaluated along with historic and current clinical information. HPV nRNA E6/E7 Not Detected Not Detected [facility] Comment: Methodology: Retail Support Manager-Mediated Amplification This assay detects E6/E7 viral messenger RNA (mRNA) from 14 high-risk HPV types (16,18,31,33,35,39,45,51,52,56,58,59,66,68). Cervical sources are required for HPV testing. If a vaginal source from a patient who has had a total hysterectomy with removal of cervix was submitted, please contact the testing laboratory for alternative testing options. For additional information, please refer to http://education.BRAND-Y[employer]SELF/faq/XQE401d5 (This link if provided for information/ educational purposes only.) 06/11/2022 10:3 0 AM EST 06/12/2022 12:54 PM EST Narrative [facility] - 06/16/2022 7:42 AM EST FASTING: UNKNOWN us Kamille Zambrano MD LAB PATHOLOGY ORDERABLES [facility] Result [address] [place] [address] [facility] [address] [facility], ([address]) [place] [address] from Last 3 Months or Most Recently Relevant to Health Maintenance Insurance [place] [facility] MEDICAID STAND ADULT Care Teams Carrier Operator Relationship Specialty Start Date End Date Kamille Zambrano MD [address] [place] [id number] PCP - General Family Medicine 03/07/21 Eligio Reyes Nurse Practitioner Psychiatry 04/08/22
[2025-03-26 15:08] LABS: MANUAL DIFF FLAG NO
[2025-03-26 15:14] LABS: Hematocrit 39.8 % (37.0-47.0); Hemoglobin 13.0 g/dl (12.0-16.0); Imm Gran Abs Auto 0.02 X10*3/uL (0.00-0.03); Imm Gran Pct Auto 0.3 % (0.0-0.4); Lymphocytes Absolute Auto 1.7 X10*3/uL (1.2-4.9); Mean Corpuscular HGB Conc 32.7 g/dl (31.0-35.0); Mean Corpuscular Hemoglobin 28.8 pg (27.0-33.0); Mean Corpuscular Volume 88.1 fL (80.0-98.0); NRBC Abs Auto 0.000 X10*3/uL (0.0-0.012); NRBC Pct Auto 0.0 /100WBC (0.0-0.2); Platelet Count 289 X10*3/uL (160-400); Red Blood Count 4.52 X10*6/uL (4.20-5.50); White Blood Count 6.1 X10*3/uL (4.8-10.8)
[2025-03-26 15:42] LABS: Alanine Aminotransferase 16 U/L (0-31); Albumin Level 5.0 g/dL (3.5-5.0); Alkaline Phosphatase 57 U/L (39-117); Anion Gap 11 (12-20); Aspartate Amino Transferase 25 U/L (5-31); Blood Urea Nitrogen 10 mg/dL (9-16); Calcium 9.7 mg/dL (8.4-10.2); Carbon Dioxide 27 mmol/L (22-29); Chloride 105 mmol/L (96-108); Cholesterol 193 mg/dL (<200); Estimated Glomerular Filt Rate > 60; HDL Cholesterol 52 mg/dL (>40); Potassium 4.4 mmol/L (3.3-5.1); Sodium 139 mmol/L (135-145); Total Protein 8.1 g/dL (6.5-8.0); Triglycerides 100 mg/dL (<150)
[2025-03-26 18:15] LABS: Bacterial Vaginosis PCR POSITIVE (Negative); Candida Group PCR NOT DETECTED (Not Detect); Candida glab krusei PCR NOT DETECTED (Not Detect); Trichomonas vaginalis PCR NOT DETECTED (Not Detect)
[2025-03-27 01:22] LABS: CT PCR Urine NOT DETECTED (Not Detect.); NG PCR Urine NOT DETECTED (Not Detect.)
[2025-03-29 03:53] LABS: Syphilis Screen Nonreactive (Nonreactive)
[2025-03-29 04:02] LABS: HIV Num 1 0.06 S/CO (0.00-0.99); ~HepC Num1 0.13 S/CO (0.00-0.79); ~Hepatitis C Antibody Nonreactive (Nonreactive)
== END 2025-03-26 10:28 | disposition home or self-care (01) ==
LOC: HO.CHCLDS 10:27
PROVIDERS: Visit Provider Family Medicine
DX: Z11.4 Encounter for screening for human immunodeficiency virus [HIV] (principal); E66.813 Obesity, class 3; Z68.41 Body mass index [BMI] 40.0-44.9, adult; Z20.2 Contact with and (suspected) exposure to infections with a predominantly sexual mode of transmission; Z11.59 Encounter for screening for other viral diseases
CPT/HCPCS: 36415; 80053; 80061; 81515; 82306; 84443; 85025; 86780; 86803; 87389; 87491; 87591